=== PATIENT | female | born 1955 | race African-American/Black ===

== ENCOUNTER 2016-08-16 07:13 | Day surgery (SDC) | payer OTHER ==
[2016-08-16] MEDS ORDERED: LIDOCAINE HCL/PF 2% SDV 5ML VIAL ONE (08:19)
[2016-08-16 08:34] VITALS: BMI 32.1
[2016-08-16 10:02] VITALS: TEMP 97.7
[2016-08-16 10:39] VITALS: BP 136/76; PULSE 60
--- NOTE | 2016-08-17 11:13 | PATH ---
Surgical Pathology Report Patient Name: GRACIA DEL CID [facility]. Rec. #: [id number] /Age/Gender: 1955 (Age: 61) / F Account: [id number] Location: [facility]-ENDOSCOPY Taken: 08/16/2016 Received: 08/16/2016 Reported: 08/17/2016 Physicians: Maykel Lou M.D. Specimen(s) Received A: BX GASTRIC B: BX GE JUNCTION C: BX RECTUM D: BX RECTOSIGMOID Clinical History GI bleed, ulcerative colitis Gastritis, hiatal hernia, reflux gastritis Final Diagnosis A. STOMACH, BIOPSY: GASTRIC FUNDIC MUCOSA WITH FOCAL MILD CHRONIC GASTRITIS. IMMUNOSTAIN FOR H. PYLORI IS NEGATIVE. B. GE JUNCTION, BIOPSY: SQUAMOUS EPITHELIUM WITH PAPILLOMATOSIS SUGGESTIVE OF REFLUX ESOPHAGITIS. NO INTESTINAL METAPLASIA IDENTIFIED (NO GAVIRIA'S IDENTIFIED). C. COLON, RECTUM, BIOPSY: ACTIVE COLITIS WITH ARCHITECTURAL DISTORTION CONSISTENT WITH IDIOPATHIC INFLAMMATORY BOWEL DISEASE. NO GRANULOMATA OR DYSPLASIA IDENTIFIED.: D. COLON, RECTOSIGMOID, BIOPSY: COLONIC MUCOSA WITH ACTIVE COLITIS AND CRYPT ABSCESS FORMATION CONSISTENT WITH ACTIVE IDIOPATHIC INFLAMMATORY BOWEL DISEASE IN THE PROPER CLINICAL CONTEXT. NO GRANULOMATA OR DYSPLASIA IDENTIFIED. Electronically Signed Mahesh Reyes M.D. Gross Description A. Received in formalin, labeled "gastric biopsy" is a jensen, irregular portion of soft tissue measuring 0.5 cm. in greatest dimension. The specimen is submitted in toto in one cassette. B. Received in formalin, labeled "biopsy GE junction" is a jensen, irregular portion of soft tissue measuring 0.3 cm. in greatest dimension. The specimen is submitted in toto in one cassette. C. Received in formalin, labeled "biopsy rectum" are 4 jensen, irregular portions of soft tissue ranging from 0.3-0.4 cm. in greatest dimension. The specimens are submitted in toto in one cassette. D. Received in formalin, labeled "biopsy rectosigmoid" is a jensen, irregular portion of soft tissue measuring 0.4 cm. in greatest dimension. The specimen is submitted in toto in one cassette. 08/16/2016 saudi08/16/2016
== END 2016-08-16 10:40 | disposition home or self-care (01) ==
LOC: JASU-ENDO 07:13
PROVIDERS: ATTEND Internal Medicine Gastroenterology
PROC: 0DBP8ZX Excision of Rectum, Via Natural or Artificial Opening Endoscopic, Diagnostic (ICD-10-PCS; 2016-08-16)
PROC: 0DB48ZX Excision of Esophagogastric Junction, Via Natural or Artificial Opening Endoscopic, Diagnostic (ICD-10-PCS; 2016-08-16)
PROC: 0DB68ZX Excision of Stomach, Via Natural or Artificial Opening Endoscopic, Diagnostic (ICD-10-PCS; 2016-08-16)
PROC: 0DBN8ZX Excision of Sigmoid Colon, Via Natural or Artificial Opening Endoscopic, Diagnostic (ICD-10-PCS; principal; 2016-08-16 08:00)
DX: K62.89 Other specified diseases of anus and rectum (principal); K51.20 Ulcerative (chronic) proctitis without complications; K29.60 Other gastritis without bleeding; K44.9 Diaphragmatic hernia without obstruction or gangrene
CPT/HCPCS: 88305-TC; 88342-TC

== ENCOUNTER 2016-10-06 05:07 | Day surgery (SDC) | payer OTHER ==
[2016-09-17 13:44] VITALS: BMI 30.2
[~2016-10-06 05:07] MED LIST: BUPIVACAINE HCL/PF 0.5% (5MG/ML) 10 ML VIAL IJ ONE; LIDOCAINE HCL 1%, 10 MG/ML (20ML VIAL) IJ ONE
[2016-10-06] MEDS ORDERED: LIDOCAINE HCL 1%, 10 MG/ML (20ML VIAL) ONE ×2 (07:17→08:13)
[2016-10-06] MEDS ORDERED: BUPIVACAINE HCL/PF 0.5% (5MG/ML) 10 ML VIAL ONE (07:18)
[2016-10-06] MEDS ORDERED: MIDAZOLAM HCL 2 MG/2 ML SINGLE DOSE VIAL ONE (07:48)
[2016-10-06] MEDS ORDERED: PROPOFOL 20 ML ONE (07:48)
[2016-10-06] MEDS ORDERED: ONDANSETRON 4 MG/2 ML VIAL IVPUSH PRN (08:02)
[2016-10-06] MEDS ORDERED: oxyCODONE HCL 5 MG TABLET PO PRN (08:02)
[2016-10-06] MEDS ORDERED: methylPREDNISolone ACET (DEPO) 40 MG/1 ML VIAL ONE (08:12)
[2016-10-06] MEDS ORDERED: KETOROLAC TROMETHAMINE 30 MG/1 ML VIAL ONE (08:13)
[2016-10-06] MEDS ORDERED: LIDOCAINE HCL/PF 2% SDV 5ML VIAL ONE (08:13)
[2016-10-06] MEDS ORDERED: methylPREDNISolone ACET (DEPO) 80 MG/1 ML VIAL ONE (08:13)
[2016-10-06] MEDS ORDERED: DEXAMETHASONE SOD PHOSPHATE 4 MG/1 ML VIAL ONE (08:13)
[2016-10-06] MEDS ORDERED: LACTATED RINGERS SOLUTION 1,000 ML IV SCH (08:15)
[2016-10-06] MEDS ORDERED: ceFAZolin SODIUM 1 GM VIAL IVPB ONE (08:25)
[2016-10-06] MEDS ORDERED: LIDOCAINE HCL 1%, 10 MG/ML (20ML VIAL) IJ ONE (08:26)
[2016-10-06] MEDS ORDERED: BUPIVACAINE HCL/PF 0.5% (5MG/ML) 10 ML VIAL IJ ONE (08:26)
--- NOTE | 2016-10-06 08:37 | HP ---
Satellite [facility] - Chief Complaint Chief Complaint: left thumb pain - Past Medical History Allergies/Adverse Reactions: Allergies Allergy/AdvReac Type Severity Reaction Status Date / Time No Known Allergies Allergy Verified 09/17/16 13:35 - Current Medications Current Medications: Home Medications Medication Instructions Recorded Azathioprine 50 mg PO BID 06/10/11 Valsartan/Hydrochlorothiazide 160 mg PO DAILY 06/10/11 [Diovan Hct 160-25 mg Tablet] Mesalamine [Canasa] 1,000 mg RC BID #0 supp.rect 08/16/16 Mesalamine [Lialda] 4.8 gm PO DAILY #0 tablet. 08/16/16 Cholecalciferol (Vitamin D3) 1,000 unit PO DAILY 09/17/16 [Vitamin D3 -] Hydrocodone/Acetaminophen [[place] 1 each PO Q6H PRN #40 tablet MDD 4 10/06/16 5-325 Tablet] Satellite Physical Exam - Physical Examination Vital Signs: Vital Signs Period Temp Pulse Resp BP Sys/Zambrano Pulse Ox Last 24 Hr 97.7 F 79 18 145/71 99 General Appearance: Well Nourished, Well Developed, Alert & Oriented x3 ENT: Clear Lung: Normal air movement Heart: Regular rate & rhythm Extremities: Other (left thumb- + ttp a1 joshua, + locking, nvi) Neurological: Intact, Alert, Oriented Satellite Impression/Plan - Impression/Plan Impression: left thumb trigger finger Operative Procedure: left thumb trigger release Date to be Performed: 10/06/16
--- NOTE | 2016-10-06 08:58 | OP ---
Operative Note - Note: Operative Date: 10/06/16 ([facility]) Pre-Operative Diagnosis: left thumb trigger finger Operation: left thumb trigger release Post-Operative Diagnosis: Same as Pre-op Surgeon: Owen Dawson Window Systems Administrator: Pato Manuel Anesthesiologist/FORM SETTER [employer]EL FORMS: Mo Morton Anesthesia: General, Local Specimens Removed: tenosynovium Estimated Blood Loss (mls): 0 (tourniquet) Operative Report Dictated: Yes
[2016-10-06 10:06] VITALS: TEMP 98.1
[2016-10-06 12:52] VITALS: BP 121/65; PULSE 71
--- NOTE | 2016-10-07 09:55 | SPEC ---
DATE OF OPERATION: 10/06/2016 PREOPERATIVE DIAGNOSIS: Left trigger thumb. POSTOPERATIVE DIAGNOSIS: Left trigger thumb. PROCEDURE: Left trigger thumb release and tenosynovectomy. SURGEON: Owen Dawson MD TRAINING PROGRAM DEVELOPER: Pato Manuel MD ANESTHESIOLOGIST: Mo Morton MD ANESTHESIA: MAC anesthesia, local injection of 10 mL of 0.5% Marcaine and 1% lidocaine mixed.. DRAINS: None. COMPLICATIONS: None. SPECIMENS: Tenosynovium, left thumb. BLOOD LOSS: None. BLOOD GIVEN: None. FLUID REPLACEMENT: 500 mL. INDICATIONS: This patient is a 61-year-old female with a preoperative diagnosis of recurrent severe left trigger-thumb. After understanding the potential risks, complications, alternatives, and benefits of surgical versus nonsurgical treatment, the patient elected to undergo this procedure. She received 1 g of IV Ancef. DESCRIPTION OF PROCEDURE: The patient was brought to the operating room, IV was placed, IV sedation was given. The patient had 1 gram of intravenous Ancef given. A tourniquet was applied to the left upper arm and the left upper extremity was prepped and draped in sterile fashion. The entire case was done under 3.8 loupe magnification. A marking pen was utilized to alejandro out a longitudinal incision in an already existing skin crease at the base of the left trigger thumb. A mix of 10 mL of 0.5% Marcaine with 1% Lidocaine was injected in and around the incision. The left upper extremity was elevated, exsanguinated with an Esmarch bandage and the tourniquet inflated to 250 mm of mercury. A No. 15 scalpel blade was utilized to cut down through the skin. Subcutaneous hemostasis was achieved with the bipolar cautery. Additional dissection was done with Littler scissors until I was able to directly visualize the A-1 joshua sheath in its entirety. Self-retaining retractors were placed into the wound. A [place] elevator was used to free up the tissue on the radial side, the ulnar side distally and proximally under better visualization of A-1 joshua sheath. Next, using a fresh No. 15 scalpel blade, I excised the central 1/3 of the A-1 joshua sheath and passed it off the field as specimen, tendon sheath, ring finger. I then completed the release, both distally and proximally, and brought the FDS and FDP tendons out through the wound with a Ragnell retractor. There were no abnormal points of compression. I was able to move the ring finger without the tendons bunching up at all. The area was then copiously irrigated and washed out. I then checked one more time to make sure there were no abnormal points of compression. None were seen and therefore closure was begun. One stitch using 4-0 Vicryl was used in the deep dermal layer. Skin was reapproximated with 4-0 Nylon sutures in a horizontal mattress fashion. The area was then washed and dried, covered with Xeroform gauze, sterile 4x4s, fluffs between the fingers, Webril and Coban. The tourniquet was taken down after a total tourniquet time of 18 minutes. There were no complications during the case. The patient tolerated the procedure well and was brought to the ambulatory recovery room in stable condition. Ana Paula [id number]
--- NOTE | 2016-10-07 16:30 | PATH ---
Surgical Pathology Report Patient Name: GRACIA DEL CID [facility]. Rec. #: [id number] /Age/Gender: 1955 (Age: 61) / F Account: [id number] Location: [facility] SURGICAL Taken: 10/06/2016 Received: 10/06/2016 Reported: 10/07/2016 Physicians: Pato Manuel M.D. Specimen(s) Received TENOSYNOVIUM LEFT THUMB Clinical History Left trigger thumb Final Diagnosis SOFT TISSUE, LEFT THUMB, TENOSYNOVIUM, TRIGGER THUMB RELEASE: BENIGN FIBROFATTY TENOSYNOVIAL TISSUE. Electronically Signed Owen Albarado M.D. Gross Description Received in formalin labeled "tenosynovium left thumb" is a 0.8 cm greatest dimension jensen-yellow soft tissue fragment which is submitted in toto in one cassette. 10/06/201610/06/2016
== END 2016-10-06 12:20 | disposition home or self-care (01) ==
LOC: JASU-SURG 05:07
PROVIDERS: ATTEND Orthopaedic Surgery
PROC: 0LN80ZZ Release Left Hand Tendon, Open Approach (ICD-10-PCS; principal; 2016-10-06 08:00)
DX: M65.312 Trigger thumb, left thumb (principal)
CPT/HCPCS: 88304-TC; 94760

== ENCOUNTER 2019-02-16 08:22 | Day surgery (SDC) | payer OTHER ==
[2019-02-16] MEDS ORDERED: diphenhydrAMINE HCL 25 MG CAPSULE (FP) PO ONE ×2 (08:30→09:19)
[2019-02-16] MEDS ORDERED: SODIUM CHLORIDE 250 ML IV ONE (08:30)
[2019-02-16] MEDS ORDERED: ACETAMINOPHEN 325 MG TABLET (FP) PO ONE (08:30)
[2019-02-16] MEDS ORDERED: INFLIXIMAB IVPB ONE (09:00)
[2019-02-16] MEDS ORDERED: SODIUM CHLORIDE IVPB ONE (09:00)
[2019-02-16] MEDS ORDERED: ACETAMINOPHEN 325 MG TABLET (FP) ONE (09:20)
[2019-02-16 12:41] VITALS: BP 128/68; PULSE 76; TEMP 98.8
[2019-02-16 13:22] LABS: BASO % 0.5 % (0-2.0); EOS % 0.1 % (0-4.5); HEMATOCRIT 38.7 % (32.4-45.2); LYMPH % 15.6 % (8-40); MCH 32.9 pg (25.7-33.7); MCHC 33.6 g/dl (32.0-36.0); MEAN CELL VOLUME 97.9 fl (80-96); MEAN PLT VOLUME 10.5 fl (7.5-11.1); MONO % 1.7 % (3.8-10.2); NEUT % 82.1 % (42.8-82.8); PLATELET COUNT 186 K/MM3 (134-434); RBC 3.95 M/mm3 (3.60-5.2); RDW 13.2 % (11.6-15.6); WHITE BLOOD COUNT 6.9 K/mm3 (4.0-10.0)
[2019-02-16 13:46] LABS: ANION GAP 6 MMOL/L (8-16); BLOOD UREA NITROGEN 18.8 mg/dL (7-18); CALCIUM 9.4 mg/dL (8.5-10.1); CHLORIDE 103 mmol/L (98-107); CO2 32 mmol/L (21-32); GLUCOSE,RANDOM 214 mg/dL (74-106); POTASSIUM 4.2 mmol/L (3.5-5.1); SODIUM 141 mmol/L (136-145)
== END 2019-02-16 13:24 | disposition home or self-care (01) ==
LOC: JCHEMO 08:22
PROVIDERS: ATTEND Internal Medicine Gastroenterology
DX: K51.80 Other ulcerative colitis without complications (principal)
CPT/HCPCS: 36415; 80048; 85025; 86140; 96413; 96415; J1745

== ENCOUNTER 2019-03-09 08:13 | Day surgery (SDC) | payer OTHER ==
[2019-03-09] MEDS ORDERED: SODIUM CHLORIDE 250 ML IV ONE (08:30)
[2019-03-09 08:42] LABS: BASO % 1.1 % (0-2.0); EOS % 1.3 % (0-4.5); HEMATOCRIT 39.8 % (32.4-45.2); HEMOGLOBIN 13.4 GM/dL (10.7-15.3); LYMPH % 52.5 % (8-40); MCH 33.5 pg (25.7-33.7); MCHC 33.7 g/dl (32.0-36.0); MEAN CELL VOLUME 99.2 fl (80-96); MEAN PLT VOLUME 10.3 fl (7.5-11.1); MONO % 7.1 % (3.8-10.2); PLATELET COUNT 167 K/MM3 (134-434); RBC 4.01 M/mm3 (3.60-5.2); RDW 13.2 % (11.6-15.6); WHITE BLOOD COUNT 8.1 K/mm3 (4.0-10.0)
[2019-03-09] MEDS ORDERED: diphenhydrAMINE HCL 25 MG CAPSULE (FP) PO ONE ×2 (08:44→09:00)
[2019-03-09] MEDS ORDERED: ACETAMINOPHEN 325 MG TABLET (FP) ONE (08:45)
[2019-03-09 08:59] LABS: ANION GAP 7 MMOL/L (8-16); CALCIUM 8.9 mg/dL (8.5-10.1); CHLORIDE 107 mmol/L (98-107); CO2 29 mmol/L (21-32); CREATININE 1.1 mg/dL (0.55-1.3); GLUCOSE,RANDOM 110 mg/dL (74-106); POTASSIUM 3.4 mmol/L (3.5-5.1); SODIUM 142 mmol/L (136-145)
[2019-03-09] MEDS ORDERED: ACETAMINOPHEN 325 MG TABLET (FP) PO ONE (09:00)
[2019-03-09] MEDS ORDERED: SODIUM CHLORIDE IVPB ONE (09:30)
[2019-03-09] MEDS ORDERED: INFLIXIMAB IVPB ONE (09:30)
[2019-03-09 10:33] VITALS: TEMP 98.3
[2019-03-09 11:02] VITALS: BP 134/67; PULSE 65
== END 2019-03-09 12:24 | disposition home or self-care (01) ==
LOC: JCHEMO 08:13
PROVIDERS: ATTEND Internal Medicine Gastroenterology
DX: K51.90 Ulcerative colitis, unspecified, without complications (principal)
CPT/HCPCS: 36415; 80048; 85025; 86140; 96413; 96415; J1745

== ENCOUNTER 2019-04-06 08:23 | Day surgery (SDC) | payer OTHER ==
[2019-04-06] MEDS ORDERED: diphenhydrAMINE HCL 25 MG CAPSULE (FP) PO ONE (09:00)
[2019-04-06] MEDS ORDERED: SODIUM CHLORIDE 250 ML IV ONE (09:00)
[2019-04-06] MEDS ORDERED: ACETAMINOPHEN 325 MG TABLET (FP) PO ONE (09:00)
[2019-04-06 09:01] LABS: BASO % 0.9 % (0-2.0); EOS % 3.6 % (0-4.5); HEMATOCRIT 40.4 % (32.4-45.2); HEMOGLOBIN 13.7 GM/dL (10.7-15.3); LYMPH % 48.8 % (8-40); MCH 33.4 pg (25.7-33.7); MCHC 34.1 g/dl (32.0-36.0); MEAN PLT VOLUME 10.1 fl (7.5-11.1); MONO % 10.2 % (3.8-10.2); NEUT % 36.5 % (42.8-82.8); PLATELET COUNT 172 K/MM3 (134-434); RBC 4.12 M/mm3 (3.60-5.2); RDW 12.9 % (11.6-15.6); WHITE BLOOD COUNT 5.7 K/mm3 (4.0-10.0)
[2019-04-06 09:22] LABS: ANION GAP 4 MMOL/L (8-16); BLOOD UREA NITROGEN 11.8 mg/dL (7-18); CHLORIDE 106 mmol/L (98-107); CO2 30 mmol/L (21-32); CREATININE 0.8 mg/dL (0.55-1.3); GLUCOSE,RANDOM 106 mg/dL (74-106); POTASSIUM 4.1 mmol/L (3.5-5.1); SODIUM 140 mmol/L (136-145)
[2019-04-06] MEDS ORDERED: SODIUM CHLORIDE IVPB ONE (09:30)
[2019-04-06] MEDS ORDERED: INFLIXIMAB IVPB ONE (09:30)
[2019-04-06 15:12] VITALS: BP 117/67; PULSE 70; TEMP 98.1
== END 2019-04-06 15:24 | disposition home or self-care (01) ==
LOC: JCHEMO 08:23 → J7W 09:18 → JCHEMO 15:24
PROVIDERS: ATTEND Internal Medicine Gastroenterology
DX: K51.90 Ulcerative colitis, unspecified, without complications (principal)
CPT/HCPCS: 36415; 80048; 85025; 86140; 96413; 96415; J1745

== ENCOUNTER 2019-09-27 05:01 | Day surgery (SDC) | payer OTHER ==
[2019-09-27] MEDS ORDERED: diphenhydrAMINE HCL 25 MG CAPSULE (FP) PO ONE ×2 (07:52→08:30)
[2019-09-27] MEDS ORDERED: ACETAMINOPHEN 325 MG TABLET (FP) ONE (07:53)
[2019-09-27] MEDS ORDERED: ACETAMINOPHEN 325 MG TABLET (FP) PO ONE (08:30)
[2019-09-27] MEDS ORDERED: SODIUM CHLORIDE 250 ML IV ONE (08:30)
[2019-09-27] MEDS ORDERED: INFLIXIMAB IVPB ONE (09:00)
[2019-09-27] MEDS ORDERED: SODIUM CHLORIDE IVPB ONE (09:00)
[2019-09-27 12:16] VITALS: BP 116/71; PULSE 72; TEMP 98.9
== END 2019-09-27 12:16 | disposition home or self-care (01) ==
LOC: JCHEMO 05:01
PROVIDERS: ATTEND Internal Medicine Gastroenterology
DX: K51.90 Ulcerative colitis, unspecified, without complications (principal)
CPT/HCPCS: 96413; 96415; J1745

== ENCOUNTER 2019-11-22 05:07 | Day surgery (SDC) | payer OTHER ==
[2019-11-22] MEDS ORDERED: SODIUM CHLORIDE 250 ML IV ONE (08:15)
[2019-11-22] MEDS ORDERED: diphenhydrAMINE HCL 25 MG CAPSULE (FP) PO ONE ×2 (08:25→08:30)
[2019-11-22] MEDS ORDERED: ACETAMINOPHEN 325 MG TABLET (FP) ONE (08:25)
[2019-11-22] MEDS ORDERED: ACETAMINOPHEN 325 MG TABLET (FP) PO ONE (09:00)
[2019-11-22] MEDS ORDERED: SODIUM CHLORIDE IVPB ONE ×2 (09:00→09:01)
[2019-11-22] MEDS ORDERED: INFLIXIMAB ABDA IVPB ONE (09:00)
[2019-11-22] MEDS ORDERED: INFLIXIMAB IVPB ONE (09:01)
[2019-11-22 11:30] VITALS: TEMP 98.3
[2019-11-22 12:07] VITALS: BP 125/75; PULSE 59
== END 2019-11-22 12:00 | disposition home or self-care (01) ==
LOC: JCHEMO 05:07
PROVIDERS: ATTEND Internal Medicine Gastroenterology
DX: K51.90 Ulcerative colitis, unspecified, without complications (principal)
CPT/HCPCS: 96413; 96415; J1745

== ENCOUNTER 2020-01-17 04:54 | Day surgery (SDC) | payer OTHER ==
[2020-01-17] MEDS ORDERED: diphenhydrAMINE HCL 25 MG CAPSULE (FP) PO ONE (08:28)
[2020-01-17] MEDS ORDERED: ACETAMINOPHEN 325 MG TABLET (FP) ONE (08:29)
[2020-01-17] MEDS ORDERED: SODIUM CHLORIDE 250 ML IV ONE (08:30)
[2020-01-17] MEDS ORDERED: diphenhydrAMINE HCL 50 MG CAPSULE PO ONE (08:30)
[2020-01-17] MEDS ORDERED: ACETAMINOPHEN 325 MG TABLET (FP) PO ONE (08:30)
[2020-01-17] MEDS ORDERED: SODIUM CHLORIDE IVPB ONE (10:00)
[2020-01-17] MEDS ORDERED: INFLIXIMAB ABDA IVPB ONE (10:00)
[2020-01-17 15:01] VITALS: TEMP 98.4
[2020-01-17 15:10] VITALS: PULSE 77
[2020-01-17 15:11] VITALS: BP 137/80
== END 2020-01-17 13:45 | disposition home or self-care (01) ==
LOC: JCHEMO 04:54
PROVIDERS: ATTEND Internal Medicine Gastroenterology
DX: K51.80 Other ulcerative colitis without complications (principal)
CPT/HCPCS: 96413; 96415; Q5104

== ENCOUNTER 2020-03-13 04:34 | Day surgery (SDC) | payer OTHER ==
[2020-03-13] MEDS ORDERED: SODIUM CHLORIDE IVPB ONE (07:45)
[2020-03-13] MEDS ORDERED: INFLIXIMAB IVPB ONE (07:45)
[2020-03-13] MEDS ORDERED: ACETAMINOPHEN 325 MG TABLET (FP) PO ONE (08:00)
[2020-03-13] MEDS ORDERED: diphenhydrAMINE HCL 25 MG CAPSULE (FP) PO ONE ×2 (08:00→08:14)
[2020-03-13] MEDS ORDERED: ACETAMINOPHEN 325 MG TABLET (FP) ONE (08:14)
[2020-03-13 11:38] VITALS: BP 126/60; PULSE 71; TEMP 98.1
[2020-03-13 11:48] LABS: BASO % 0.4 % (0-2.0); HEMATOCRIT 39.5 % (32.4-45.2); HEMOGLOBIN 13.4 GM/dL (10.7-15.3); LYMPH % 15.2 % (8-40); MCH 33.5 pg (25.7-33.7); MCHC 33.8 g/dl (32.0-36.0); MEAN CELL VOLUME 99.2 fl (80-96); MONO % 3.8 % (3.8-10.2); NEUT % 80.6 % (42.8-82.8); PLATELET COUNT 162 K/MM3 (134-434); RBC 3.98 M/mm3 (3.60-5.2); RDW 13.4 % (11.6-15.6); WHITE BLOOD COUNT 9.7 K/mm3 (4.0-10.0)
[2020-03-13 12:03] LABS: CHLORIDE 102 mmol/L (98-107); SODIUM 141 mmol/L (136-145)
[2020-03-13 12:05] LABS: CALCIUM 8.6 mg/dL (8.5-10.1)
[2020-03-13 12:06] LABS: ALBUMIN 3.5 g/dl (3.4-5.0); ANION GAP 8 MMOL/L (8-16); BLOOD UREA NITROGEN 16.7 mg/dL (7-18); CO2 30 mmol/L (21-32); GLUCOSE,RANDOM 222 mg/dL (74-106)
[2020-03-13 12:09] LABS: SGOT/AST 12 U/L (15-37); SGPT/ALT 39 U/L (13-61)
[2020-03-13 12:10] LABS: BILIRUBIN,TOTAL 0.5 mg/dL (0.2-1); TOT PROT 6.9 g/dl (6.4-8.2)
[2020-03-13 12:11] LABS: ALK PHOS 72 U/L (45-117)
== END 2020-03-13 12:12 | disposition home or self-care (01) ==
LOC: JCHEMO 04:34
PROVIDERS: ATTEND Internal Medicine Gastroenterology
DX: K51.90 Ulcerative colitis, unspecified, without complications (principal)
CPT/HCPCS: 36415; 80053; 85025; 86140; 96413; 96415; J1745

== ENCOUNTER 2020-05-08 04:31 | Day surgery (SDC) | payer OTHER ==
[2020-05-08] MEDS ORDERED: diphenhydrAMINE HCL 25 MG CAPSULE (FP) PO ONE ×2 (08:45→09:16)
[2020-05-08] MEDS ORDERED: ACETAMINOPHEN 325 MG TABLET (FP) PO ONE (08:45)
[2020-05-08] MEDS ORDERED: SODIUM CHLORIDE 250 ML IV ONE (08:45)
[2020-05-08] MEDS ORDERED: SODIUM CHLORIDE IVPB ONE (09:00)
[2020-05-08] MEDS ORDERED: INFLIXIMAB IVPB ONE (09:00)
[2020-05-08] MEDS ORDERED: ACETAMINOPHEN 325 MG TABLET (FP) ONE ×2 (09:17→09:23)
[2020-05-08 10:57] LABS: BASO % 0.8 % (0-2.0); EOS % 2.2 % (0-4.5); HEMATOCRIT 40.7 % (32.4-45.2); LYMPH % 46.9 % (8-40); MCHC 34.4 g/dl (32.0-36.0); MEAN CELL VOLUME 98.7 fl (80-96); MONO % 7.7 % (3.8-10.2); NEUT % 42.4 % (42.8-82.8); PLATELET COUNT 180 K/MM3 (134-434); RBC 4.13 M/mm3 (3.60-5.2); RDW 13.3 % (11.6-15.6); WHITE BLOOD COUNT 7.5 K/mm3 (4.0-10.0)
[2020-05-08 11:24] LABS: CHLORIDE 104 mmol/L (98-107); POTASSIUM 3.3 mmol/L (3.5-5.1); SODIUM 142 mmol/L (136-145)
[2020-05-08 11:25] LABS: CALCIUM 9.4 mg/dL (8.5-10.1)
[2020-05-08 11:26] LABS: ANION GAP 6 MMOL/L (8-16); BLOOD UREA NITROGEN 11.1 mg/dL (7-18); CO2 32 mmol/L (21-32); GLUCOSE,RANDOM 147 mg/dL (74-106)
[2020-05-08 11:29] LABS: CREATININE 0.8 mg/dL (0.55-1.3)
[2020-05-08 12:59] VITALS: BP 126/78; PULSE 77; TEMP 98.2
== END 2020-05-08 13:10 | disposition home or self-care (01) ==
LOC: JCHEMO 04:31
PROVIDERS: ATTEND Internal Medicine Gastroenterology
DX: K51.90 Ulcerative colitis, unspecified, without complications (principal)
CPT/HCPCS: 36415; 80048; 85025; 86140; 96413; 96415; J1745

== ENCOUNTER 2020-07-03 04:37 | Day surgery (SDC) | payer OTHER ==
[2020-07-03] MEDS ORDERED: diphenhydrAMINE HCL 25 MG CAPSULE (FP) PO ONE ×2 (08:00→08:55)
[2020-07-03] MEDS ORDERED: SODIUM CHLORIDE 250 ML IV ONE (08:00)
[2020-07-03] MEDS ORDERED: ACETAMINOPHEN 325 MG TABLET (FP) PO ONE (08:00)
[2020-07-03] MEDS ORDERED: SODIUM CHLORIDE IVPB ONE (08:30)
[2020-07-03] MEDS ORDERED: INFLIXIMAB IVPB ONE (08:30)
[2020-07-03] MEDS ORDERED: ACETAMINOPHEN 325 MG TABLET (FP) ONE (08:55)
[2020-07-03 11:47] VITALS: TEMP 98.2
[2020-07-03 14:22] VITALS: BP 136/84; PULSE 72
== END 2020-07-03 13:05 | disposition home or self-care (01) ==
LOC: JCHEMO 04:37
PROVIDERS: ATTEND Internal Medicine Gastroenterology
DX: K51.90 Ulcerative colitis, unspecified, without complications (principal)
CPT/HCPCS: 96413; 96415; J1745

== ENCOUNTER 2020-08-28 12:39 | Day surgery (SDC) | payer OTHER ==
[2020-08-28] MEDS ORDERED: ACETAMINOPHEN 325 MG TABLET (FP) PO ONE (14:00)
[2020-08-28] MEDS ORDERED: diphenhydrAMINE HCL 50 MG CAPSULE PO ONE (14:00)
[2020-08-28] MEDS ORDERED: SODIUM CHLORIDE 250 ML IV ONE (14:00)
[2020-08-28] MEDS ORDERED: SODIUM CHLORIDE IVPB ONE (14:30)
[2020-08-28] MEDS ORDERED: INFLIXIMAB IVPB ONE (14:30)
[2020-08-28 18:46] VITALS: BP 114/61; PULSE 74; TEMP 98.3
== END 2020-08-28 18:48 | disposition home or self-care (01) ==
LOC: FINFUSION 12:39 → FM/S 12:50 → FINFUSION 18:48
PROVIDERS: ATTEND Internal Medicine Gastroenterology
DX: K51.90 Ulcerative colitis, unspecified, without complications (principal)
CPT/HCPCS: 96413; 96415; J1745

== ENCOUNTER 2020-10-23 11:24 | Day surgery (SDC) | payer OTHER ==
[2020-10-23] MEDS ORDERED: SODIUM CHLORIDE 250 ML IV ONE (12:15)
[2020-10-23] MEDS ORDERED: methylPREDNISolone NA SUCC 40 MG/1 ML VIAL IVPUSH ONE (12:45)
[2020-10-23] MEDS ORDERED: ACETAMINOPHEN 500 MG TABLET (FP) PO ONE (12:45)
[2020-10-23] MEDS ORDERED: diphenhydrAMINE HCL 25 MG CAPSULE (FP) PO ONE (12:45)
[2020-10-23] MEDS ORDERED: SODIUM CHLORIDE IVPB ONE (13:15)
[2020-10-23] MEDS ORDERED: INFLIXIMAB IVPB ONE (13:15)
[2020-10-23 16:25] VITALS: BP 123/69; PULSE 81; TEMP 98.5
== END 2020-10-23 16:44 | disposition home or self-care (01) ==
LOC: FINFUSION 11:24 → FM/S 11:36 → FINFUSION 16:44
PROVIDERS: ATTEND Internal Medicine Gastroenterology
PROC: 3E033GC Introduction of Other Therapeutic Substance into Peripheral Vein, Percutaneous Approach (ICD-10-PCS; principal; 2020-10-23)
DX: K51.90 Ulcerative colitis, unspecified, without complications (principal)
CPT/HCPCS: 96365; 96366; 96375; J1745

== ENCOUNTER 2020-10-29 06:32 | Day surgery (SDC) | payer OTHER ==
[2020-10-27 11:32] VITALS: BMI 29.5
[2020-10-29] MEDS ORDERED: CYCLOPENTOLATE 2% OPHTH SOLN 2 ML BOTTLE ONE (06:46)
[2020-10-29] MEDS ORDERED: CIPROFLOXACIN 0.3% EYE DROPS 5 ML BOTTLE ONE (06:46)
[2020-10-29] MEDS ORDERED: PHENYLEPHRINE 2.5% OPHTH SOLN 15 ML BOTTLE ONE (06:46)
[2020-10-29] MEDS ORDERED: TROPICAMIDE 1% OPHTH SOLN 15 ML BOTTLE ONE (06:47)
[2020-10-29] MEDS ORDERED: TETRACAINE 0.5% OPHTH SOLN 2 ML BOTTLE ONE (07:07)
[2020-10-29] MEDS ORDERED: LIDOCAINE 1% P/F 10 MG/ML VIAL ONE (07:07)
[2020-10-29] MEDS ORDERED: EPINEPHrine/PF 1 MG/1 ML (1:1,000) AMPULE ONE (07:07)
[2020-10-29] MEDS ORDERED: BSS (NA/CA/MG/K) BALANCED SALT SOLUTION OPHTH SOLN 15 ML BOTTLE ONE (07:08)
[2020-10-29] MEDS ORDERED: CARBACHOL 0.01% INTRA-OCULAR 1.5 ML VIAL ONE (07:08)
[2020-10-29] MEDS ORDERED: NEO/POLYMYX B SULF/DEXAMETH OPHTHALMIC 5ML BOTTLE ONE (07:09)
[2020-10-29] MEDS ORDERED: MIDAZOLAM HCL 2 MG/2 ML SINGLE DOSE VIAL ONE (08:02)
[2020-10-29] MEDS ORDERED: PROPOFOL 20 ML ONE (08:04)
[2020-10-29] MEDS ORDERED: SUCCINYLCHOLINE CHLORIDE 200 MG/10 ML SYRINGE ONE (08:04)
[2020-10-29 13:35] VITALS: TEMP 97.8
[2020-10-29 13:37] VITALS: BP 146/68; PULSE 70
== END 2020-10-29 09:10 | disposition home or self-care (01) ==
LOC: FASU 06:32
PROVIDERS: ATTEND Ophthalmology
PROC: 08RK3JZ Replacement of Left Lens with Synthetic Substitute, Percutaneous Approach (ICD-10-PCS; principal; 2020-10-29 08:06)
DX: H26.8 Other specified cataract (principal)

== ENCOUNTER 2020-11-28 10:46 | Day surgery (SDC) | payer OTHER ==
[2020-11-28 11:22] VITALS: TEMP 98.2
[2020-11-28 11:31] VITALS: BMI 29.5
[2020-11-28] MEDS ORDERED: ACETAMINOPHEN 500 MG TABLET (FP) PO ONE (12:00)
[2020-11-28] MEDS ORDERED: INFLIXIMAB IVPB ONE ×2 (12:00→12:30)
[2020-11-28] MEDS ORDERED: diphenhydrAMINE HCL 50 MG CAPSULE PO ONE (12:00)
[2020-11-28] MEDS ORDERED: SODIUM CHLORIDE 250 ML IV SCH (12:00)
[2020-11-28] MEDS ORDERED: SODIUM CHLORIDE IVPB ONE ×2 (12:00→12:30)
[2020-11-28] MEDS ORDERED: methylPREDNISolone NA SUCC 125 MG/2 ML VIAL IVPUSH ONE (12:25)
[2020-11-28 16:21] VITALS: BP 127/76; PULSE 70
== END 2020-11-28 17:34 | disposition home or self-care (01) ==
LOC: FINFUSION 10:46 → FM/S 10:58 → FINFUSION 17:34
PROVIDERS: ATTEND Internal Medicine Gastroenterology
PROC: 3E03305 Introduction of Other Antineoplastic into Peripheral Vein, Percutaneous Approach (ICD-10-PCS; principal; 2020-11-28)
PROC: 3E013GC Introduction of Other Therapeutic Substance into Subcutaneous Tissue, Percutaneous Approach (ICD-10-PCS; 2020-11-28)
DX: K51.90 Ulcerative colitis, unspecified, without complications (principal)
CPT/HCPCS: 96375; 96413; 96415; J1745

== ENCOUNTER 2021-01-24 09:18 | Day surgery (SDC) | payer OTHER ==
[2021-01-24] MEDS ORDERED: INFLIXIMAB IVPB SCH ×2 (10:00)
[2021-01-24] MEDS ORDERED: SODIUM CHLORIDE IVPB SCH ×2 (10:00)
[2021-01-24] MEDS ORDERED: ACETAMINOPHEN 500 MG TABLET (FP) PO PRN ×2 (11:45)
[2021-01-24] MEDS ORDERED: methylPREDNISolone NA SUCC 40 MG/1 ML VIAL IVPUSH SCH (11:45)
[2021-01-24] MEDS ORDERED: diphenhydrAMINE HCL 50 MG CAPSULE PO SCH (11:45)
[2021-01-24 15:08] VITALS: BP 130/62; PULSE 81; TEMP 98.7
== END 2021-01-24 15:20 | disposition home or self-care (01) ==
LOC: FINFUSION 09:18 → FM/S 09:21 → FINFUSION 15:20
PROVIDERS: ATTEND Internal Medicine Gastroenterology
DX: K51.90 Ulcerative colitis, unspecified, without complications (principal)
CPT/HCPCS: 96413; 96415; J1745

== ENCOUNTER 2021-05-01 17:37 | Observation (INO) | payer OTHER ==
[2021-05-01 19:11] LABS: BASO % 0.8 % (0-2.0); EOS % 3.6 % (0-4.5); HEMOGLOBIN 13.2 GM/dL (10.7-15.3); LYMPH % 36.9 % (8-40); MCH 33.3 pg (25.7-33.7); MCHC 34.9 g/dl (32.0-36.0); MEAN CELL VOLUME 95.4 fl (80-96); MEAN PLT VOLUME 9.9 fl (7.5-11.1); NEUT % 49.7 % (42.8-82.8); PLATELET COUNT 185 10^3/uL (134-434); RBC 3.98 M/mm3 (3.60-5.2); RDW 13.2 % (11.6-15.6); WHITE BLOOD COUNT 6.5 K/mm3 (4.0-10.0)
[2021-05-01 19:29] LABS: BLOOD UREA NITROGEN 12.5 mg/dL (7-18); CALCIUM 9.3 mg/dL (8.5-10.1); MAGNESIUM 2.1 mg/dL (1.8-2.4)
[2021-05-01 19:33] LABS: CREATININE 0.8 mg/dL (0.55-1.3)
[2021-05-01 19:35] LABS: BILIRUBIN,TOTAL 0.4 mg/dL (0.2-1); TOT PROT 8.2 g/dl (6.4-8.2)
[2021-05-02 00:19] VITALS: BMI 29.0
[2021-05-02 13:29] LABS: CALCIUM 9.6 mg/dL (8.5-10.1)
[2021-05-02 13:30] LABS: BLOOD UREA NITROGEN 12.3 mg/dL (7-18); MAGNESIUM 2.2 mg/dL (1.8-2.4)
[2021-05-02 13:33] LABS: CREATININE 0.7 mg/dL (0.55-1.3)
[2021-05-02] MEDS: HEPARIN NA (PORCINE) 5,000 UNITS/ML 1ML VIAL SQ SCH ×2 (21:29→21:32)
[2021-05-02] MEDS: DOCUSATE SODIUM 100 MG CAPSULE (FP) PO SCH (21:29)
[2021-05-02] MEDS ORDERED: MESALAMINE 1000 MG/SUPP.RECT SUPP RC SCH (22:00)
[2021-05-03 07:25] LABS: BASO % 0.9 % (0-2.0); EOS % 5.5 % (0-4.5); HEMATOCRIT 39.2 % (32.4-45.2); HEMOGLOBIN 13.2 GM/dL (10.7-15.3); LYMPH % 47.4 % (8-40); MCH 32.6 pg (25.7-33.7); MCHC 33.6 g/dl (32.0-36.0); MEAN CELL VOLUME 96.9 fl (80-96); MEAN PLT VOLUME 10.8 fl (7.5-11.1); MONO % 8.7 % (3.8-10.2); NEUT % 37.5 % (42.8-82.8); PLATELET COUNT 181 10^3/uL (134-434); RBC 4.05 M/mm3 (3.60-5.2); WHITE BLOOD COUNT 6.7 K/mm3 (4.0-10.0)
[2021-05-03 07:38] LABS: CHLORIDE 107 mmol/L (98-107); SODIUM 143 mmol/L (136-145)
[2021-05-03 07:45] LABS: ALBUMIN 3.6 g/dl (3.4-5.0); CALCIUM 9.2 mg/dL (8.5-10.1)
[2021-05-03 07:46] LABS: ANION GAP 4 MMOL/L (8-16); BLOOD UREA NITROGEN 10.9 mg/dL (7-18); CO2 31 mmol/L (21-32); GLUCOSE,RANDOM 80 mg/dL (74-106); SGOT/AST 19 U/L (15-37)
[2021-05-03 07:48] LABS: BILIRUBIN,TOTAL 0.5 mg/dL (0.2-1); TOT PROT 7.5 g/dl (6.4-8.2)
[2021-05-03 07:50] LABS: ALK PHOS 74 U/L (45-117); CREATININE 0.7 mg/dL (0.55-1.3); SGPT/ALT 31 U/L (13-61)
[2021-05-03] MEDS: CYANOCOBALAMIN 1,000 MCG TABLET (FP) PO SCH (09:17)
[2021-05-03] MEDS: LOSARTAN POTASSIUM 50 MG TABLET PO SCH (09:17)
[2021-05-03] MEDS: CHOLECALCIFEROL (VIT D3) 1,000 UNIT (25 MCG) TABLET PO SCH (09:17)
[2021-05-03] MEDS: HEPARIN NA (PORCINE) 5,000 UNITS/ML 1ML VIAL SQ SCH (09:20)
[2021-05-03] MEDS ORDERED: PATIENT'S OWN MEDICATION (NON-FORMULARY) (Telmisartan/Hydrochlorothiazid [Telmisartan-Hctz PO SCH (10:00)
[2021-05-03] MEDS ORDERED: amLODIPine BESYLATE 2.5 MG TABLET (FP) PO SCH (10:00)
[2021-05-03] MEDS ORDERED: HYDROCHLOROTHIAZIDE 25 MG TABLET (FP) PO SCH (10:00)
[2021-05-03] MEDS: DOCUSATE SODIUM 100 MG CAPSULE (FP) PO SCH (21:21)
[2021-05-03] MEDS: MESALAMINE 800 MG TABLET.DR PO SCH (21:25)
[2021-05-04 09:31] VITALS: BP 142/74; PULSE 73; TEMP 98.7
[2021-05-04] MEDS: CYANOCOBALAMIN 1,000 MCG TABLET (FP) PO SCH (10:23)
[2021-05-04] MEDS: MESALAMINE 800 MG TABLET.DR PO SCH (10:24)
[2021-05-04] MEDS: CHOLECALCIFEROL (VIT D3) 1,000 UNIT (25 MCG) TABLET PO SCH (10:24)
[2021-05-04] MEDS: LOSARTAN POTASSIUM 50 MG TABLET PO SCH (10:27)
== END 2021-05-04 14:17 | disposition home or self-care (01) ==
LOC: JER 17:37 → JERBED 21:04 → J4W 22:25
PROVIDERS: ADMIT Specialist; ATTEND Specialist
DX: R55 Syncope and collapse (principal); R00.2 Palpitations; K51.90 Ulcerative colitis, unspecified, without complications; I10 Essential (primary) hypertension; E78.5 Hyperlipidemia, unspecified
CPT/HCPCS: 36415; 70450-TC; 71045-TC-FY; 80048; 80053; 82550; 82553; 82607; 83735; 84443; 84484; 85025; 93005; 93010; 93306-TC; 93880-TC; 99285-25; C9803; G0378; J1644; U0003; U0005

== ENCOUNTER 2021-05-17 12:19 | Emergency (ER) | payer OTHER ==
[2021-05-17 12:29] VITALS: TEMP 98.6; BMI 29.9
[2021-05-17 13:35] LABS: BASO % 1.3 % (0-2.0); EOS % 4.6 % (0-4.5); HEMOGLOBIN 14.2 GM/dL (10.7-15.3); MEAN CELL VOLUME 97.2 fl (80-96); MEAN PLT VOLUME 10.3 fl (7.5-11.1); MONO % 8.4 % (3.8-10.2); NEUT % 40.7 % (42.8-82.8); PLATELET COUNT 200 10^3/uL (134-434); RBC 4.32 M/mm3 (3.60-5.2); RDW 13.4 % (11.6-15.6); WHITE BLOOD COUNT 6.4 K/mm3 (4.0-10.0)
[2021-05-17 14:04] LABS: BLOOD UREA NITROGEN 10.2 mg/dL (7-18); CALCIUM 8.8 mg/dL (8.5-10.1)
[2021-05-17 14:05] LABS: ALBUMIN 4.3 g/dl (3.4-5.0); MAGNESIUM 2.3 mg/dL (1.8-2.4)
[2021-05-17 14:07] LABS: PH,URINE 7.5 (5.0-8.0); URINE APPEARANCE CLEAR; URINE BILIRUBIN NEGATIVE (NEGATIVE); URINE COLOR YELLOW; URINE GLUCOSE (UA) NEGATIVE (NEGATIVE); URINE KETONE NEGATIVE (NEGATIVE); URINE LEUK ESTERASE NEGATIVE (NEGATIVE); URINE NITRITE NEGATIVE (NEGATIVE); URINE PROTEIN NEGATIVE (NEGATIVE); URINE UROBILINOGEN 0.2 mg/dL (0.2-1.0)
[2021-05-17 14:08] LABS: CREATININE 0.8 mg/dL (0.55-1.3)
[2021-05-17 14:09] LABS: BILIRUBIN,TOTAL 0.4 mg/dL (0.2-1); TOT PROT 8.7 g/dl (6.4-8.2)
[2021-05-17] MEDS ORDERED: amLODIPine BESYLATE 5 MG TABLET (FP) PO ONE (15:38)
[2021-05-17] MEDS ORDERED: amLODIPine BESYLATE 5 MG TABLET (FP) ONE (15:45)
[2021-05-17 17:09] VITALS: BP 148/80; PULSE 82
== END 2021-05-17 17:10 | disposition home or self-care (01) ==
LOC: JER 12:19
DX: R53.1 Weakness (principal); I10 Essential (primary) hypertension
CPT/HCPCS: 36415; 71045-TC-FY; 80053; 81003; 82550; 82553; 83735; 84484; 85025; 87086; 93005; 93010; 99285-25

== ENCOUNTER 2021-05-28 13:48 | Emergency (ER) | payer OTHER ==
[2021-05-28 14:25] VITALS: TEMP 98.2; BMI 29.9
[2021-05-28 15:40] LABS: URINE APPEARANCE CLEAR; URINE BILIRUBIN NEGATIVE (NEGATIVE); URINE COLOR YELLOW; URINE GLUCOSE (UA) NEGATIVE (NEGATIVE); URINE KETONE NEGATIVE (NEGATIVE); URINE LEUK ESTERASE NEGATIVE (NEGATIVE); URINE NITRITE NEGATIVE (NEGATIVE); URINE PROTEIN NEGATIVE (NEGATIVE); URINE UROBILINOGEN 0.2 mg/dL (0.2-1.0)
[2021-05-28 15:47] LABS: EOS % 1.9 % (0-4.5); HEMATOCRIT 39.4 % (32.4-45.2); HEMOGLOBIN 13.2 GM/dL (10.7-15.3); LYMPH % 28.8 % (8-40); MCH 32.6 pg (25.7-33.7); MCHC 33.5 g/dl (32.0-36.0); MEAN CELL VOLUME 97.4 fl (80-96); MEAN PLT VOLUME 10.8 fl (7.5-11.1); MONO % 6.4 % (3.8-10.2); NEUT % 61.9 % (42.8-82.8); PLATELET COUNT 206 10^3/uL (134-434); RBC 4.05 M/mm3 (3.60-5.2); RDW 12.8 % (11.6-15.6); WHITE BLOOD COUNT 6.6 K/mm3 (4.0-10.0)
[2021-05-28 15:57] LABS: CALCIUM 9.4 mg/dL (8.5-10.1)
[2021-05-28 15:58] LABS: ALBUMIN 3.8 g/dl (3.4-5.0)
[2021-05-28 16:01] LABS: CREATININE 0.8 mg/dL (0.55-1.3)
[2021-05-28 16:04] LABS: BILIRUBIN,TOTAL 0.4 mg/dL (0.2-1); TOT PROT 8.2 g/dl (6.4-8.2)
[2021-05-28 18:52] VITALS: BP 139/76; PULSE 73
== END 2021-05-28 20:10 | disposition home or self-care (01) ==
LOC: JER 13:48
DX: R41.82 Altered mental status, unspecified (principal)
CPT/HCPCS: 36415; 70450-TC; 71046-TC-FY; 72125-TC; 80053; 81003; 82962; 84484; 85025; 87086; 93005; 93010; 99285-25

== ENCOUNTER 2022-03-17 22:14 | Emergency (ER) | payer OTHER ==
[2022-03-17 22:26] VITALS: BMI 31.3
[2022-03-17 23:45] LABS: PH,URINE 5.5 (5.0-8.0); URINE APPEARANCE CLEAR; URINE BILIRUBIN NEGATIVE (NEGATIVE); URINE COLOR YELLOW; URINE GLUCOSE (UA) NEGATIVE (NEGATIVE); URINE KETONE NEGATIVE (NEGATIVE); URINE LEUK ESTERASE NEGATIVE (NEGATIVE); URINE NITRITE NEGATIVE (NEGATIVE); URINE PROTEIN NEGATIVE (NEGATIVE); URINE UROBILINOGEN 0.2 mg/dL (0.2-1.0)
[2022-03-18 00:10] LABS: HEMATOCRIT 31.8 % (32.4-45.2); HEMOGLOBIN 10.7 GM/dL (10.7-15.3); MCH 34.4 pg (25.7-33.7); MCHC 33.5 g/dl (32.0-36.0); MEAN CELL VOLUME 102.6 fl (80-96); MEAN PLT VOLUME 8.8 fl (7.5-11.1); PLATELET COUNT 112 10^3/uL (134-434); WHITE BLOOD COUNT 4.1 K/mm3 (4.0-10.0)
[2022-03-18] MEDS ORDERED: SODIUM CHLORIDE 0.9% 500 ML INFUS.BAG IV ONE (00:50)
[2022-03-18 01:22] LABS: CALCIUM 9.3 mg/dL (8.5-10.1)
[2022-03-18 01:23] LABS: BLOOD UREA NITROGEN 13.8 mg/dL (7-18); MAGNESIUM 1.1 mg/dL (1.8-2.4)
[2022-03-18 01:26] LABS: CREATININE 0.8 mg/dL (0.55-1.3)
[2022-03-18 01:27] LABS: TOT PROT 7.6 g/dl (6.4-8.2)
[2022-03-18 01:28] LABS: BILIRUBIN,TOTAL 0.4 mg/dL (0.2-1)
[2022-03-18] MEDS ORDERED: MAGNESIUM SULF 50% (8.12 MEQ/2 ML-1 GM VIAL) IVPB ONE (01:38)
[2022-03-18] MEDS ORDERED: MAGNESIUM SULFATE IN WATER 2 GM/50 ML IVPB IVPB ONE (01:42)
[2022-03-18 02:36] VITALS: TEMP 97.6
[2022-03-18 04:17] VITALS: BP 137/76; PULSE 93; RESP 20
[2022-03-18 05:39] LABS: ANISOCYTOSIS 1+; MACROCYTOSIS 0; TARGET CELLS 3+
== END 2022-03-18 04:29 | disposition home or self-care (01) ==
LOC: JER 22:14
PROC: 3E033GC Introduction of Other Therapeutic Substance into Peripheral Vein, Percutaneous Approach (ICD-10-PCS; principal; 2022-03-17)
DX: R00.2 Palpitations (principal); E83.42 Hypomagnesemia
CPT/HCPCS: 36415; 71045-TC-FY; 71275-TC; 80053; 81003; 83735; 84439; 84443; 84484; 85025; 85379; 87077; 87086; 93005; 93010; 99291

== ENCOUNTER 2022-12-09 19:49 | Emergency (ER) | payer OTHER ==
[2022-12-09 19:54] VITALS: BP 135/82; PULSE 115; RESP 18; TEMP 98.2; BMI 29.9
== END 2022-12-09 21:23 | disposition home or self-care (01) ==
LOC: JERFT 19:49
DX: I10 Essential (primary) hypertension (principal)
CPT/HCPCS: 93005; 93010; 99283-25